=== PATIENT | female | born 1960 | race Caucasian/White ===

== ENCOUNTER → 2018-09-27 | Outpatient (REF) ==
[~2018-09-27] MED LIST: ACET-1935 PO; ALP5 PO; ALPR-441 PO; AMI10 PO; BLAC20TA6 PO; FLU20 PO
--- NOTE | 2018-09-27 11:30 | RADIOLOGY IMAGING REPORT ---
FACILITY: [facility] [place] PATIENT NAME: Mimi Gay : 1960 MR: [id number] V: [id number] EXAM DATE: ORDERING PHYSICIAN: ROCAEL AVZQUEZ TECHNOLOGIST: Location: [facility] [place] Patient: Mimi Gay : 1960 Visit/Account:[id number] Date of Sevice: 09/27/2018 Exam type: L-SPINE 2 OR 3 VIEW History: Comparison: CT lumbar spine November 03, 2012. Findings: There five nonrib-bearing lumbar-type vertebral bodies present. There is moderate disc space narrowi ng with anterior osteophytes and sclerosis of the adjacent endplates at L4-5. Moderate disc space na rrowing also noted at L5-S1. These changes are slightly more advanced when compared to the prior monserrat dy. Tiny anterior osteophytes are seen at L3-4 and L2-3 and L1-2 IMPRESSION: 1. Moderate spondylotic changes at L4-5 and L5-S1 slightly more advanced when compared to the prior study Report Dictated By: Danita Gibbs MD at 09/27/2018 11:20 AM Report E-Signed By: Danita Gibbs MD at 09/27/2018 11:22 AM WSN:[id number]
== END ==
LOC: RAD 10:00
PROVIDERS: ATTEND Nurse Practitioner
DX: M43.06 Spondylolysis, lumbar region (principal)
CPT/HCPCS: 72100